=== PATIENT | female | born 1975 | race Caucasian/White ===

== ENCOUNTER 2020-10-16 17:45 | Emergency (ER) | payer OTHER ==
[~2020-10-16] VITALS: Ht 162.6 cm; Wt 59.1 kg
[2020-10-16 17:55] VITALS: BP 161/76
[2020-10-16 18:05] LABS: COVID AG,FIA SOURCE NASOPHARYNGEAL
== END 2020-10-16 18:11 | disposition home or self-care (01) ==
LOC: EMS 17:45
DX: B34.9 Viral infection, unspecified (principal); Z20.822 Contact with and (suspected) exposure to COVID-19; Z88.2 Allergy status to sulfonamides
CPT/HCPCS: 87426; 87430; 99283; U0003